=== PATIENT | female | born 1955 | race Hispanic/Latino ===

== ENCOUNTER 2023-02-05 13:54 | Outpatient (RCR) | payer MEDICARE, OTHER ==
[~2023-02-05 13:54] MED LIST: CARVEDILOL3.125 MG PO; LOSARTAN POTASS25 MG PO; OMEGA-31000 MG PO; [UNRECOGNIZED DRUG - OTHER] PO
== END 2023-02-25 ==
LOC: PT 13:54
PROVIDERS: ATTEND Specialist
DX: M75.121 Complete rotator cuff tear or rupture of right shoulder, not specified as traumatic (principal)

== ENCOUNTER 2023-11-01 06:33 | Observation (INO) | payer MEDICARE ==
[2023-10-29 09:10] LABS: BASOPHILS % 0.8 % (0.0-1.0); EOSINOPHILS # (AUTO) 0.1 (0.0-0.4); EOSINOPHILS % 1.7 % (0.0-6.0); HEMATOCRIT 38.9 % (34.2-44.1); LYMPHOCYTES # (AUTO) 1.1 (1.0-3.2); LYMPHOCYTES % 22.4 % (18.0-39.1); MEAN CORPUSCULAR HEMOGLOBIN 30.5 pg (28-32); MEAN CORPUSCULAR HGB CONC 33.4 g/dL (31-35); MEAN CORPUSCULAR VOLUME 91.3 fL (81-99); MONOCYTES # (AUTO) 0.3 (0.2-0.8); MONOCYTES % 6.2 % (4.4-11.3); NEUTROPHILS # (AUTO) 3.3 (2.1-6.9); NEUTROPHILS % 68.7 % (38.7-80.0); PLATELET COUNT 296 x10e3/uL (140-360); RED BLOOD COUNT 4.26 x10e6/uL (3.6-5.1); RED CELL DISTRIBUTION WIDTH 12.2 % (11.7-14.4); WHITE BLOOD COUNT 4.82 x10e3/uL (4.8-10.8)
[~2023-11-01 06:33] MED LIST changes: +ALLEGRA ALLERG180 MG PO; +HYDROCHLOROTHIA25 MG PO; +MAGNESIUM PO; +MECLIZINE HCL12.5 MG PO; +MULTI-VITAMIN1 EACH PO; +OXYBUTYNIN CHLOR5 MG PO; +PANTOPRAZOLE SO40 MG PO
[2023-11-01] MEDS: CELECOXIB 200 MG CAP ONE (06:56)
[2023-11-01] MEDS: CEFAZOLIN SODIUM 2 GM ONE (06:56)
[2023-11-01] MEDS: DEXAMETHASONE SOD PHOS 10 MG/1 ML VIAL ONE (06:56)
[2023-11-01] MEDS: LACTATED RINGER'S 1,000 ML ONE (06:57)
[2023-11-01] MEDS: GABAPENTIN 300 MG CAP ONE (06:57)
[2023-11-01 07:56] LABS: ANION GAP 11.4 mmol/L (8-16); CALCIUM 9.7 mg/dL (8.4-10.2); CREATININE, SERUM 0.67 mg/dL (0.57-1.11)
[2023-11-01 08:03] LABS: POTASSIUM 3.4 mmol/L (3.5-5.1)
[2023-11-01] MEDS ORDERED: TRANEXAMIC ACID 20 ML ONE (08:15)
[2023-11-01] MEDS ORDERED: Vancomycin IV 500 MG ONE (08:15)
[2023-11-01] MEDS ORDERED: SODIUM CHLORIDE 0.9% 500ML 500 ML ONE (08:15)
[2023-11-01] MEDS ORDERED: DIPHENHYDRAMINE HCL INJ 50 MG/ML VIAL IV PRN (10:30)
[2023-11-01] MEDS ORDERED: DOCUSATE SODIUM 100 MG CAP PO PRN (10:30)
[2023-11-01] MEDS ORDERED: ONDANSETRON HCL INJ 2MG/ML 2ML 2 MG/ML VIAL IV PRN (10:30)
[2023-11-01] MEDS ORDERED: HYDROCODONE/APAP 5MG-325MG TAB PO PRN (10:30)
[2023-11-01] MEDS ORDERED: HYDROCODONE/APAP 7.5MG-325MG 1 EA TAB PO PRN (10:30)
[2023-11-01] MEDS ORDERED: ONDANSETRON HCL INJ 2MG/ML 2ML 2 MG/ML VIAL ONE (12:26)
[2023-11-01] MEDS ORDERED: DEXAMETHASONE SOD PHOS INJ 4 MG/ML SDV ONE (12:26)
[2023-11-01] MEDS ORDERED: FAMOTIDINE 20 MG/2 ML VIAL IV ONE (12:26)
[2023-11-01] MEDS ORDERED: ACETAMINOPHEN 1000 MG/100 ML IV ONE (12:26)
[2023-11-01] MEDS ORDERED: LIDOCAINE HCL 2% LOCAL INJ 5 ML SDV VIAL INJ ONE (12:26)
[2023-11-01] MEDS ORDERED: SEVOFLURANE INHAL SOLN 250 ML PEN BTL ONE (12:26)
[2023-11-01] MEDS ORDERED: PROPOFOL IV EMULSION 10 MG/ML 20 ML VIAL ONE (12:26)
[2023-11-01] MEDS ORDERED: ROPIVACAINE 0.5% 5 MG/ML 30 ML SDV ONE (12:28)
[2023-11-01] MEDS ORDERED: EPINEPHRINE HCL 1:1000 1ML 1 MG/ML AMP ONE (12:28)
[2023-11-01] MEDS ORDERED: FENTANYL CITRATE/PF 100MCG/2 ML INJ ONE ×2 (12:32→12:33)
[2023-11-01] MEDS ORDERED: MIDAZOLAM HCL 2 MG/2 ML VIAL ONE (12:33)
[2023-11-01 15:00] VITALS: BP_SYST 116; BP_SYST 95; BP_DIAS 64; BP_DIAS 69; PULSE 65; PULSE 69; RESP 17; RESP 18; TEMP 97.4; TEMP 97.5; O2SAT 100; O2SAT 95
[2023-11-01] MEDS: ROPIVACAINE 246.25 MG, EPINEPHRINE HCL 1:1000 1ML 0.5 MG, CLONIDINE HCL 0.08 MG, KETORO... INJ ONE (15:49)
[2023-11-01] MEDS: CELECOXIB 200 MG CAP PO SCH (16:58)
[2023-11-01] MEDS: ASPIRIN 325 MG TAB PO SCH (16:58)
[2023-11-01] MEDS: SODIUM CHLORIDE 0.9% 1000ML 1,000 ML IV SCH (17:00)
[2023-11-01 17:18] LABS: BASOPHILS % 0.1 % (0.0-1.0); HEMATOCRIT 34.8 % (34.2-44.1); HEMOGLOBIN 11.8 g/dL (12.0-16.0); LYMPHOCYTES # (AUTO) 0.8 (1.0-3.2); LYMPHOCYTES % 4.2 % (18.0-39.1); MEAN CORPUSCULAR HEMOGLOBIN 31.1 pg (28-32); MEAN CORPUSCULAR HGB CONC 33.9 g/dL (31-35); MEAN CORPUSCULAR VOLUME 91.6 fL (81-99); MONOCYTES # (AUTO) 1.1 (0.2-0.8); MONOCYTES % 5.4 % (4.4-11.3); NEUTROPHILS # (AUTO) 17.8 (2.1-6.9); NEUTROPHILS % 89.8 % (38.7-80.0); PLATELET COUNT 296 x10e3/uL (140-360); RED CELL DISTRIBUTION WIDTH 12.1 % (11.7-14.4); WHITE BLOOD COUNT 19.82 x10e3/uL (4.8-10.8)
[2023-11-01 18:49] VITALS: PULSE 68; RESP 16; O2SAT 97
[2023-11-01 19:53] VITALS: BP 109/76; PULSE 66; RESP 18; TEMP 97.6; O2SAT 96
[2023-11-01 21:16] VITALS: BP 109/76; PULSE 66; RESP 18; TEMP 97.6; O2SAT 96
[2023-11-01 23:37] VITALS: BP 83/59; PULSE 65; RESP 18; TEMP 97.7; O2SAT 99
[2023-11-02 03:29] VITALS: BP 101/70; PULSE 79; RESP 18; TEMP 98; O2SAT 99
[2023-11-02 05:12] LABS: HEMATOCRIT 31.4 % (34.2-44.1); HEMOGLOBIN 10.4 g/dL (12.0-16.0)
[2023-11-02 07:00] VITALS: BP 101/70; PULSE 79; RESP 18; TEMP 98; O2SAT 99
[2023-11-02 07:07] VITALS: PULSE 74; RESP 20; O2SAT 98
[2023-11-02 10:07] VITALS: BP 105/71; PULSE 68; RESP 18; TEMP 98.2; O2SAT 100
[2023-11-02] MEDS: ACETAMINOPHEN 1000 MG/100 ML IV PRN (10:32)
[2023-11-02 12:50] VITALS: BP 102/67; PULSE 73; RESP 16; TEMP 98; O2SAT 99
[2023-11-02] MEDS ORDERED: ASPIRIN81 MG PO (13:10)
== END 2023-11-02 14:40 | disposition home health service (06) ==
LOC: OR 06:33 → PACU V 10:35 → MED/SURG 15:21
PROVIDERS: ADMIT Specialist; ATTEND Specialist
DX: M16.11 Unilateral primary osteoarthritis, right hip (principal); M17.11 Unilateral primary osteoarthritis, right knee; I10 Essential (primary) hypertension; E78.5 Hyperlipidemia, unspecified; K21.9 Gastro-esophageal reflux disease without esophagitis; K29.70 Gastritis, unspecified, without bleeding; J30.9 Allergic rhinitis, unspecified; H91.90 Unspecified hearing loss, unspecified ear; E66.3 Overweight; Z68.27 Body mass index [BMI] 27.0-27.9, adult; Z01.812 Encounter for preprocedural laboratory examination; Z71.81 Spiritual or religious counseling; Z83.3 Family history of diabetes mellitus; Z79.899 Other long term (current) drug therapy
CPT/HCPCS: 27130; 36415 ×3; 72170; 80048; 85014; 85018; 85025 ×2; 86850; 86900; 94799 ×2; 97116 ×3; 97162; 97530 ×3; 99252; C1713 ×2; C1776 ×2; G0378 ×2; J0131 ×2; J0171; J0690 ×2; J1100 ×2; J1885; J2001; J2250; J2405; J2704; J2795; J3010; J3370; J7040; J7121

== ENCOUNTER → 2023-12-27 | Outpatient (RCR) | payer MEDICARE ==
[~2023-12-27] MED LIST changes: +ASPIRIN81 MG PO
== END ==
LOC: PT 11:24
PROVIDERS: ATTEND Physician Assistant
DX: Z47.1 Aftercare following joint replacement surgery (principal); Z96.641 Presence of right artificial hip joint

== ENCOUNTER 2024-01-26 10:00 | Outpatient (RCR) | payer MEDICARE | END 2024-01-27 | LOC: PT 10:00 | PROVIDERS: ATTEND Physician Assistant | DX: Z47.1 Aftercare following joint replacement surgery (principal); Z96.641 Presence of right artificial hip joint ==

== ENCOUNTER 2024-02-15 11:00 | Outpatient (RCR) | payer MEDICARE | END 2024-02-26 | LOC: PT 11:00 | PROVIDERS: ATTEND Physician Assistant | DX: Z47.1 Aftercare following joint replacement surgery (principal); Z96.641 Presence of right artificial hip joint; M25.551 Pain in right hip; M25.651 Stiffness of right hip, not elsewhere classified; M62.81 Muscle weakness (generalized) ==